=== PATIENT | female | born 1975 | race Caucasian/White ===

== ENCOUNTER → 2017-05-22 | Day surgery (SDC) | payer BC ==
[2017-05-12 11:52] VITALS: Ht 165.1 cm; Wt 51.8 kg
[~2017-05-22] VITALS: Ht 165.1 cm; Wt 51.8 kg
[~2017-05-22] MED LIST: ATROPINE SULFATE 0.1 MG/ML 5ML SYR IV PRN; BCPILLS PO; BUPIVACAINE/EPINEPHRINE 0.5% MPF 1:200,000 30 ML VIAL ONE; CEFAZOLIN 2000MG IV PUSH 10 ML IV SCH; DEXAMETHASONE SOD INJ 4 MG/ML VIAL ONE; EpHEDrine SULFATE INJ 50 MG/ML AMP IV PRN; FENTANYL CITRATE INJ 50 MCG/1 ML 2 ML VIAL IV PRN; FENTANYL CITRATE INJ 50 MCG/1 ML 2 ML VIAL ONE; HYDROCODONE/ACETAMOPHEN 5/325MG TAB PO PRN; HYDROmorphone INJ 1 MG/ML SYR IV PRN; IBUP-1050 PO; LACTATED RINGER'S 1000ML 1,000 ML IV SCH; LIDOCAINE HCL 2% 2 ML VIAL (20MG/ML) ONE; MIDAZOLAM HCL 1 MG/ML 2ML VIAL ONE; ONDANSETRON INJ 2 MG/ML 2 ML VIAL IV PRN; ONDANSETRON INJ 2 MG/ML 2 ML VIAL ONE; PROMETHAZINE HCL INJ 12.5 MG in SODIUM CHLORIDE 0.9% 50ML 50 ML IV PRN; PROPOFOL IV EMULSION 10 MG/ML 20 ML VIAL IV ONE
--- NOTE | 2017-05-22 06:41 | History & Physical Bridge - [place] ---
H&P Re-Evaluation Bridge Note: I have examined the patient, reviewed the History & Physical and in the interval since the performance of the History & Physical I have noted the following changes of clinical significance: No changes noted
--- NOTE | 2017-05-22 07:51 | Discharge Instructions-SurgCtr ---
Discharge Instructions Date of Service May 22, 2017. Visit Reason for Visit: Right Wrist Ganglion Cyst Discharge Discharge Diagnosis / Problem: Right wrist s/p ganglion cyst excision Discharge Goals Goal(s): Decrease discomfort, Improve function Medications Stopped Medications Name(s): Ibuprophen Activity Recommendations Activity Limitations: as noted below Lifting Limitations: gradually increase as tolerated Exercise/Sports Limitations: until after follow-up appointment Shower/Bathe: keep incision dry Anesthesia . Post Anesthesia Instructions: If you have had General Anesthesia or IV Sedation: * Do not drive today. * Resume driving when surgeon permits. * Do not make important decisions or sign legal documents today. * Call surgeon for: 1. Temperature elevations greater than 101 degrees F. 2. Uncontrollable pain. 3. Excessive bleeding. 4. Persistent nausea and vomiting. 5. Medication intolerance (nausea, vomiting or rash). * For nausea and vomiting use only clear liquids such as: tea, soda, bouillon until nausea subsides, then gradually increase diet as tolerated. * If you have any concerns or questions, call your surgeon's office. If physician is unavailable and it is an emergency, call 911 or go to the nearest emergency room. . Diet Recommendations Home Diet: resume previous diet Procedures Procedures Performed: Right Wrist Open Ganglion Cyst Excsion Pending Studies Studies pending at discharge: no Medical Emergencies . Who to Call and When: Medical Emergencies: If at any time you feel your situation is an emergency, please call 911 immediately. . Non-Emergent Contact Non-Emergency issues call your: Primary Care Provider, Surgeon Call Non-Emergent contact if: temperature is above 101, wound has increased drainage, wound has increased redness, wound has increased pain, you have any medication questions . . "Provider Documentation" section prepared by Jerel Peters PA-C. . [facility] Drug Monitoring Program Search Results: no issues identified
--- NOTE | 2017-05-22 07:51 | [facility] Post Operative Brief Note ---
Immediate Operative Summary Operative Date May 22, 2017. Pre-Operative Diagnosis Right Wrist Ganglion Cyst Post-Operative Diagnosis Same Procedure(s) Performed Right Wrist Open Ganglion Cyst Excsion Surgeon Dr. De Jesus Mammal Keeper Surgeon(s) None Estimated Blood Loss Minimal Findings Hemorrhagic cyst excised and sent to pathology Specimens A.) Right Wrist hemorrhagic Cyst Drains None Anesthesia General with local Complication(s) None Disposition Recovery Room / PACU
--- NOTE | 2017-05-22 08:15 | OPERATIVE REPORT ---
DATE OF OPERATION: 05/22/2017 PREOPERATIVE DIAGNOSIS: Right wrist dorsal ganglion cyst. POSTOPERATIVE DIAGNOSIS: Right wrist hemorrhagic cyst, likely hemangioma versus hemorrhagic ganglion cyst. OPERATION PERFORMED: Excision of hemorrhagic cyst from the right wrist. SURGEON: Phuc De Jesus MD. ANESTHESIA: General with local. ESTIMATED BLOOD LOSS: Minimal. SPECIMENS: Right wrist hemorrhagic cyst. IMPLANTS: None. COMPLICATIONS: None. INDICATIONS: Ms. Camacho is a 41-year-old female who developed a cyst on the dorsal aspect of her wrist in the setting of performing pushups and other activities as part of her workout regimen. She underwent an ultrasound which revealed a fluid-filled cyst with the EPL tendon in close proximity. Aspiration was attempted but failed. She continued to have pain in the wrist, which was affecting her functioning as well as her activities of daily living. I had a long discussion with her about the risks and benefits of surgery, alternatives to surgery and expected outcomes. After reviewing all these she elected to proceed with surgery. All questions were answered. Informed consent was signed. OPERATIVE FINDINGS: Hemorrhagic cyst was excised en bloc and sent to pathology for permanent section. DESCRIPTION OF PROCEDURE: The patient was identified in the preoperative long area where her surgical site was marked. She was brought back to main operating room. She was placed on the operating room table and general anesthesia was administered with an LMA. All bony prominences were padded. Perioperative antibiotics were administered. She was prepped and draped in the normal sterile fashion. Prior to incision, a multidisciplinary timeout was called. All in the room were in agreement. We began by exsanguinating the limb below the level of the cyst so as not to cause it to rupture using an Esmarch bandage. The tourniquet was inflated to 250 mmHg. A 2 cm transverse incision was made directly overlying the cyst. We dissected down through the subcutaneous tissues protecting any superficial veins. A branch of the superficial radial nerve was moved radially and protected throughout the case. The cyst was then immediately encountered and was hemorrhagic in nature. We dissected along the margins of the cyst which was intimately involved with an underlying vascular structure branching off the superficial radial artery. The bipolar cautery was used to coagulate the microscopic vessels entering the cyst adjacent to the vessel. The specimen was then removed en bloc and placed in a specimen cup and sent to pathology for permanent section. At this point, the wound was irrigated with copious amounts of normal saline. The incision was closed with buried 3-0 Monocryl as well as a subcuticular running Monocryl. Steri-Strips were applied followed by 2 x 2 and Tegaderm. A Coban was placed for compression. The patient was awoke from anesthesia and transferred to recovery room in stable condition. POSTOPERATIVE COURSE: The patient will be discharged home from the recovery room. She will be able to remove the dressing in 3 days. She will start immediate active range of motion. No lifting for 1 month after surgery. No DVT prophylaxis is indicated for this procedure. I attest to the content of the Intraoperative Record and any orders documented therein. Any exceptions are noted below. MTDD
[2017-05-22 08:37] VITALS: TEMP 37.3
[2017-05-22 09:07] VITALS: BP 100/68; PULSE 69; O2SAT 100
--- NOTE | 2017-05-22 09:09 | Anesthesia Progress Nt - [facility] ---
Anesthesia Post Op Note Date & Time May 22, 2017 at 09:08 Vital Signs Pain Intensity: 0 Vital Signs Past 12 Hours Date Time Temp Pulse Resp B/P (MAP) Pulse Ox O2 Delivery O2 Flow Rate FiO2 05/22/17 09:07 69 16 100/68 (79) 100 Room Air 05/22/17 08:37 37.3 70 16 109/70 (83) 98 Room Air 05/22/17 08:32 71 16 98 05/22/17 08:32 71 16 05/22/17 08:31 97/61 05/22/17 08:27 71 16 05/22/17 08:27 71 16 97 05/22/17 08:26 101/54 05/22/17 08:24 37.3 70 16 101/54 97 Room Air 05/22/17 08:23 71 17 05/22/17 08:23 70 17 97 05/22/17 08:21 103/61 05/22/17 08:18 73 16 98 05/22/17 08:18 69 16 05/22/17 08:16 105/58 05/22/17 08:13 76 20 98 05/22/17 08:13 76 20 05/22/17 08:11 106/59 05/22/17 08:08 73 18 100 05/22/17 08:08 72 18 05/22/17 08:06 100/65 05/22/17 08:03 79 17 100 05/22/17 08:03 78 17 05/22/17 08:00 104/56 05/22/17 07:58 78 18 05/22/17 07:58 79 18 100 05/22/17 07:56 99/56 05/22/17 07:54 99/65 05/22/17 07:53 36.1 77 12 99/65 100 Mask 6 05/22/17 07:53 82 05/22/17 06:58 0 05/22/17 06:53 69 05/22/17 06:53 69 0 97 05/22/17 06:52 103/70 05/22/17 06:50 103/70 05/22/17 06:48 71 0 96 05/22/17 06:48 71 05/22/17 06:47 71 106/67 95 05/22/17 06:47 71 05/22/17 06:41 36.8 71 20 106/67 (80) 96 Room Air Notes Mental Status: alert / awake / arousable, participated in evaluation Pt Amnestic to Procedure: Yes Nausea / Vomiting: adequately controlled Pain: adequately controlled Airway Patency, RR, SpO2: stable & adequate BP & HR: stable & adequate Hydration State: stable & adequate Anesthetic Complications: no major complications apparent
== END | disposition home or self-care (01) ==
LOC: X.SURG 06:26
PROVIDERS: ATTEND Orthopaedic Surgery
DX: M67.431 Ganglion, right wrist (principal); Z82.69 Family history of other diseases of the musculoskeletal system and connective tissue

== ENCOUNTER → 2017-06-06 | Outpatient (CLI) | payer BC ==
[~2017-06-06] MED LIST changes: -ATROPINE SULFATE 0.1 MG/ML 5ML SYR IV PRN; -BUPIVACAINE/EPINEPHRINE 0.5% MPF 1:200,000 30 ML VIAL ONE; -CEFAZOLIN 2000MG IV PUSH 10 ML IV SCH; -DEXAMETHASONE SOD INJ 4 MG/ML VIAL ONE; -EpHEDrine SULFATE INJ 50 MG/ML AMP IV PRN; -FENTANYL CITRATE INJ 50 MCG/1 ML 2 ML VIAL IV PRN; -FENTANYL CITRATE INJ 50 MCG/1 ML 2 ML VIAL ONE; -HYDROCODONE/ACETAMOPHEN 5/325MG TAB PO PRN; -HYDROmorphone INJ 1 MG/ML SYR IV PRN; -LACTATED RINGER'S 1000ML 1,000 ML IV SCH; -LIDOCAINE HCL 2% 2 ML VIAL (20MG/ML) ONE; -MIDAZOLAM HCL 1 MG/ML 2ML VIAL ONE; -ONDANSETRON INJ 2 MG/ML 2 ML VIAL IV PRN; -ONDANSETRON INJ 2 MG/ML 2 ML VIAL ONE; -PROMETHAZINE HCL INJ 12.5 MG in SODIUM CHLORIDE 0.9% 50ML 50 ML IV PRN; -PROPOFOL IV EMULSION 10 MG/ML 20 ML VIAL IV ONE
== END | disposition home or self-care (01) ==
LOC: C.PAPS 12:13
PROVIDERS: ATTEND Obstetrics & Gynecology
DX: Z01.419 Encounter for gynecological examination (general) (routine) without abnormal findings (principal)

== ENCOUNTER 2017-06-22 05:15 | Day surgery (SDC) | payer BC ==
--- NOTE | 2017-06-20 15:07 | HISTORY & PHYSICAL EXAMINATION ---
DATE OF ADMISSION: 06/22/2017 ATTENDING PHYSICIAN: Dr. Phuc De Jesus. CHIEF COMPLAINT: Right dorsal wrist wound infection. HISTORY OF PRESENT ILLNESS: This 41-year-old female presents to the clinic today for followup with Dr. De Jesus after undergoing an open right wrist ganglion cyst excision back on 05/22/2017. Since then the patient has had an infection and has been on antibiotics 2 separate times following surgery. During today's visit Dr. De Jesus recommended irrigation and debridement of the infected wound to be performed this at the [facility]. The patient wishes to proceed with this procedure and states she has stopped her aspirin, Tylenol, and Celebrex. She was advised to discontinue her Bactrim, which she last took yesterday evening. PAST SURGICAL HISTORY: [place] tooth extraction and right wrist ganglion cyst excision. PAST MEDICAL HISTORY: Anemia, alopecia, migraine headaches. FAMILY HISTORY: Maternal grandmother multiple sclerosis. Paternal grandmother Parkinson's disease. Paternal great grandmother cancer. ALLERGIES: The patient has no known drug allergies. CURRENT MEDICATIONS TAKEN: Bactrim-DS 800 mg/160 mg 1 tab twice daily, Celebrex 200 mg oral tablet 1 cap daily, Sprintec 0.25 mg/35 mcg oral tablet 1 tab daily, Tylenol 500 mg 2 tabs every 6 hours as needed for pain (the patient has discontinued all medications except for control due to upcoming surgery). SOCIAL HISTORY: The patient denies history of smoking or illicit drug use. She denies and states she consumes approximately 2 alcoholic beverages per day. PHYSICAL EXAMINATION: SKIN: The patient's skin is normal in appearance except for redness around the surgical incision site on the dorsal surface of the right hand. There are no open skin areas of discharge, no palpable fluctuance. EYES: Pupils are equal and react to light and accommodation. Extraocular movements are intact. THROAT: Posterior oropharynx is clear without signs of edema, erythema or exudate. CARDIOVASCULAR EXAMINATION: The patient has regular rate and rhythm with no murmurs or gallops appreciated. LUNGS: Auscultation of the lung coles reveals clear breath sounds throughout. No wheezing, rales or rhonchi. ABDOMEN: Nonobese, nondistended, nontender with normoactive bowel sounds. EXTREMITIES: Right hand/wrist. The patient has a palpable 0.5 x 1.5 cm erythematous area surrounding surgical incision site over the dorsal webspace between the first and second digits of the right hand. The area is mildly tender to palpation with some slight erythema. There is no ecchymosis, warmth, palpable deformity, open areas or active drainage. NEUROLOGICAL: Cranial nerves II-XII are intact. No motor or sensory deficit. PSYCHOLOGICAL AND GENERAL: The patient is alert and oriented x3 with proper grooming and hygiene. DIAGNOSIS: Right hand wound infection. PROCEDURE: Right hand irrigation and debridement. PLAN: The patient is scheduled to undergo this procedure with Dr. Phuc De Jesus at [facility] on , 06/22/2017. Risks and complications of the procedure such as infection, bleeding, pain, scarring, nerve and blood vessel damage, weakness, wound problems, stiffness, incomplete relief of symptoms, heart attack, stroke, were explained and patient by Dr. De Jesus during today's visit. The patient understood and agreed and we obtained written consent to perform the procedure. At this point there is no clinical indication for any preoperative medical clearance or testing. The patient will be scheduled for postop followup visit with myself in 2 weeks after surgical date. The patient is advised she will resume the use of aspirin, Tylenol and Celebrex after the procedure for DVT prophylaxis and pain control. The patient verbalized understanding along with information provided at todays visit, thanked us for the care she has received and states if she has questions or concerns that should arise prior to her surgery day she will contact the clinic.
[2017-06-21 10:09] VITALS: BMI 19.0
[~2017-06-22] VITALS: Ht 165.1 cm; Wt 51.8 kg
[~2017-06-22 05:15] MED LIST changes: -IBUP-1050 PO
[2017-06-22 05:38] VITALS: BP 105/73; PULSE 55; TEMP 36.8; O2SAT 97; Ht 165.1 cm; Wt 51.8 kg
[2017-06-22] MEDS ORDERED: CEFAZOLIN 2000MG IV PUSH 10 ML IV SCH (06:00)
[2017-06-22] MEDS ORDERED: LACTATED RINGER'S 1000ML 1,000 ML IV SCH ×2 (06:00)
[2017-06-22] MEDS ORDERED: PROPOFOL IV EMULSION 10 MG/ML 20 ML VIAL IV ONE (06:49)
[2017-06-22] MEDS ORDERED: LIDOCAINE HCL 2% 2 ML VIAL (20MG/ML) ONE (06:49)
[2017-06-22] MEDS ORDERED: FENTANYL CITRATE INJ 50 MCG/1 ML 2 ML VIAL ONE (06:50)
[2017-06-22] MEDS ORDERED: MIDAZOLAM HCL 1 MG/ML 2ML VIAL ONE (06:50)
[2017-06-22] MEDS ORDERED: BACITRACIN 50000 UNIT VIAL ONE (07:01)
[2017-06-22] MEDS ORDERED: LIDOCAINE HCL 2% LOCAL 50ML VIAL ONE (07:08)
--- NOTE | 2017-06-22 07:47 | [facility] Post Operative Brief Note ---
Immediate Operative Summary Operative Date Jun 22, 2017. Pre-Operative Diagnosis R hand suture abscess Post-Operative Diagnosis Same Procedure(s) Performed I&D R hand wound Surgeon Neal Silica Filter Operator Surgeon(s) LISSETH Lane Estimated Blood Loss 1 cc Findings No infected appearing material. Cultures obtained and sent. Monocryl suture had not dissolved and was removed from the wound. Fluids (cc crystalloids) 800cc Specimens Wound culture sent Drains None Anesthesia Local with sedation Complication(s) None Disposition Recovery Room / PACU
[2017-06-22] MEDS ORDERED: SODIUM CHLORIDE 0.9% 1000ML 1,000 ML IV SCH (07:50)
--- NOTE | 2017-06-22 07:50 | [facility] Operative Report ---
Operative Report Operative Date Jun 22, 2017. Pre-Operative Diagnosis R hand suture abscess Post-Operative Diagnosis Same Procedure(s) Performed I&D R hand wound Surgeon Neal Installment Account Checker Surgeon(s) LISSETH Lane Estimated Blood Loss 1 cc Findings Retained subcutaneous sutures Fluids 800cc Specimens Wound culture sent Drains None Anesthesia Local with sedation Complication(s) None Disposition Recovery Room / PACU I attest to the content of the Intraoperative Record and any orders documented therein. Any exceptions are noted below.
--- NOTE | 2017-06-22 07:56 | Discharge Instructions ---
Discharge Instructions Date of Service Jun 22, 2017. Admission Reason for Admission: Right Hand Wound Infection Discharge Discharge Diagnosis / Problem: Right hand Wound infection Discharge Goals Goal(s): Decrease discomfort, Improve function, Increase independence Activity Recommendations Activity Limitations: as noted below Lifting Limitations: no more than 10 pounds (for 2 wks) Exercise/Sports Limitations: until after follow-up appointment (None until after follow up) May Resume Sexual Activity: when tolerated Shower/Bathe: tomorrow, keep incision dry Driving or Machine Use: resume 1 day after discharge Weightbearing Status: Right weightbearing (as tolerated but not greater than 10 lbs for 2 wks with Rt arm) . Instructions / Follow-Up Instructions / Follow-Up Post-operative Instructions Dear Patient and Family/Friends, Before you are discharged from the hospital, it is important to know what to expect when you get home after surgery. To that end, we have created this sheet of discharge instructions which covers many commonly asked questions. Make sure you go through this sheet in its entirety with your nurse before you are discharged. Please note that we will go over the specifics of your surgery and recovery when you return for your first post-operative visit. Sincerely, Dr. De Jesus Pain Expect to be in a fair amount of pain after surgery. Remember, our goal is not to eliminate your pain, but to make it tolerable. It is a good idea to stay ahead of your pain by taking the medications you were prescribed once you get home. Typically, the pain starts improving 3-7 days after surgery. You should start weaning off the narcotic pain medication (oxycodone, hydrocodone, hydromorphone, morphine) as soon as your pain improves. Please call our office if your pain is not adequately controlled. Ice Ice your operative site at least 5 times a day for 15-30 minutes at a time. Make sure you have a thin cloth between the ice or cooling unit and your skin to prevent nixon bite. This is especially important if you received a nerve block. Continue icing your operative site for the first 5-7 days after surgery , then as needed. Diet/Nausea/Vomiting Start by drinking clear liquids and eating crackers. If you can tolerate this, then you may resume your normal diet. If you feel nauseated or vomit, take Zofran/ondansetron (if prescribed). Please call our office if you have intractable nausea or vomiting, or, if after hours, you may go to the Emergency Room for help. Constipation Constipation is a common side effect of narcotic pain medication. If you have not had a bowel movement within 2 days after surgery, we recommend purchasing an over the counter laxative such as Milk of Magnesia, Dulcolax, or Miralax from a local pharmacy, and taking it as instructed. Call our clinic if any questions. Slings and Braces If you were placed in a sling or brace, it must be worn at all times, including sleep. You may remove your sling or brace for physical therapy, home exercises , and showering. The length of time you will be in your brace and range of motion restrictions depends on what surgery you had; these details will be reviewed at your first post-operative appointment. Nerve block The anesthesia team sometimes places a nerve block to help with post-operative pain control. This results in significant numbness and inability to move the extremity. The nerve block usually wears off in 8-12 hours, but sometimes can last up to 24 hours. Please call our office if you are still unable to move your extremity after 24 hours, unless you received a pain pump to take home. Nerve blocks typically wear off quickly, so start taking pain medication as soon as you start feeling soreness near your surgical site. Weight bearing and Range of Motion. Do not bear any weight through your operative extremity immediately after surgery. If you had upper extremity surgery, do not lift anything with that arm. If you are in a knee brace, keep it locked in place until your follow-up. We will discuss your weight bearing, range of motion, and lifting restrictions in detail at your first post-operative appointment. Continuous Passive Motion (CPM) Machine If you were prescribed a CPM machine, it will start after your first post- operative appointment, at which time we will give you instructions on the range of motion settings and duration of treatment Physical therapy You will be given a prescription for physical therapy or occupational therapy at your first post-operative appointment. Typically, patients start therapy within 1 week of surgery Wound care and showering We will inspect your wound at your first post-operative visit, and may do a dressing change at that time. Most patients will be in a water-proof dressing that is removed 14 days after surgery. It is normal to see some dried blood on the dressing. Do not remove your dressing, paper strips or sutures yourself unless you are given permission. Showering is allowed the day after surgery. Do not scrub or remove any dressings. The wound should not be submerged underwater (i.e. in a bathtub or pool) until 4 weeks after surgery TIMOTHY stockings If you were given white stockings, these are to be worn at all times except to shower (on both legs) for the first 2 weeks after surgery. Driving You may not drive while taking narcotic pain medication or while in a cast, splint, sling or brace. You, the patient, need to make the final determination about when you are safe to drive, however, the earliest you may consider driving after surgery is below: Hand/Wrist/Elbow Surgery: 3 days Shoulder Surgery: 2 weeks Hip,/Knee/Ankle Surgery: 4 weeks Fracture repair: 6 weeks Return to Work Your return to work depends on what surgery was done and what type of work you do. Please bring any paperwork your employer needs completed to your first post -operative visit. Also, bring a description of your job duties, as this helps us to understand what risks you may face at work. Travel Avoid long distance travel (greater than 1 hour) in airplanes and cars for the first 6 weeks after surgery. If you must travel, you need to have a Doppler ultrasound done before you travel to rule out a blood clot in your legs. Follow-up You should have a follow-up appointment already scheduled 1-2 days after surgery. If not, please contact our office to make this appointment before you leave the hospital. When to call the office It is normal to have swelling and bruising in the limb that was operated on. This will improve with time. It is also normal to have fevers for the first 2 days after surgery. Reasons you should call your doctor include: Uncontrolled pain; Nausea, vomiting, or constipation that does not improve with medication; Fevers over 101.5, chills, sweats; Drainage or bleeding from the wound; Foul odor; Spreading areas of redness; Any other concerns Current Hospital Diet Patient's current hospital diet: Discharge Diet Recommended Diet: Regular Diet Procedures Procedures Performed: I&D R hand wound Pending Studies Studies pending at discharge: yes List of pending studies: Wound culture Medical Emergencies . Who to Call and When: Medical Emergencies: If at any time you feel your situation is an emergency, please call 911 immediately. . Non-Emergent Contact Non-Emergency issues call your: Primary Care Provider Call Non-Emergent contact if: you have a fever, temperature is above 101.5, your pain is not controlled, your pain is worsening, wound has increased drainage, you have any medication questions . "Provider Documentation" section prepared by George Stearns. . VTE Core Measure Inpt VTE Proph given/why not?: Other Anticoagulation (Aspirin EC 81 mg) [place] Drug Monitoring Program Search Results: patient reviewed within database, no issues identified, see additional documentation
[2017-06-22] MEDS ORDERED: OXYCODONE/ACETAMINOPHEN 5-325 TAB PO PRN (08:00)
[2017-06-22] MEDS ORDERED: ONDANSETRON INJ 2 MG/ML 2 ML VIAL IV PRN ×2 (08:00→08:15)
--- NOTE | 2017-06-22 08:11 | Anesthesiology Progress Note ---
Anesthesia Post Op Note Date & Time Jun 22, 2017 at 08:11 Vital Signs Pain Intensity: 0 Vital Signs Past 12 Hours Date Time Temp Pulse Resp B/P (MAP) Pulse Ox O2 Delivery O2 Flow Rate FiO2 06/22/17 08:00 36.5 63 18 107/73 97 Room Air 06/22/17 07:50 36.3 79 16 101/63 99 Oxymask 5 06/22/17 05:38 36.8 55 18 105/73 (84) 97 Room Air Notes Mental Status: alert / awake / arousable, participated in evaluation Pt Amnestic to Procedure: Yes Nausea / Vomiting: adequately controlled Pain: adequately controlled Airway Patency, RR, SpO2: stable & adequate BP & HR: stable & adequate Hydration State: stable & adequate Anesthetic Complications: no major complications apparent
[2017-06-22] MEDS ORDERED: EpHEDrine SULFATE INJ 50 MG/ML AMP IV PRN (08:15)
[2017-06-22] MEDS ORDERED: ATROPINE SULFATE 0.1 MG/ML 5ML SYR IV PRN (08:15)
[2017-06-22] MEDS ORDERED: FENTANYL CITRATE INJ 50 MCG/1 ML 2 ML VIAL IV PRN (08:15)
--- NOTE | 2017-06-22 08:34 | OPERATIVE REPORT ---
DATE OF OPERATION: 06/22/2017 PREOPERATIVE DIAGNOSIS: Right hand suture abscess. POSTOPERATIVE DIAGNOSIS: Same. OPERATION PERFORMED: Right hand wound I&D. SURGEON: Dr. Phuc De Jesus. FIELD CROP GROWER: Da Stearns. IV FLUIDS: 800 mL crystalloid. ESTIMATED BLOOD LOSS: 1 mL. URINE OUTPUT: Not recorded. SPECIMENS: Wound culture was sent for aerobic, anaerobic and Gram stain. DRAINS: None. COMPLICATIONS: None. INDICATIONS: Ms. Camacho is a 41-year-old female who underwent excision of a hemorrhagic cyst on the dorsal aspect of her right wrist on 05/22/2017. A couple of weeks after the surgery, she started having some irritation of the wound with some drainage which started on the ulnar aspect of the wound. She was started on oral Keflex and then switched to Bactrim as wound appearance did not improve on the Keflex. Despite being on over 5 days of Bactrim there was still no noticeable improvement in her wound. We talked about the possibilities of simply waiting this out versus doing an I&D to remove suture material and obtain deep cultures. After reviewing the risks and benefits of surgery, she elected to proceed. All questions were answered. Informed consent was signed. OPERATIVE FINDINGS: Monocryl suture material was still present in the wound. This was removed completely. There was no infectious appearing material in the wound. Wound cultures were obtained. The skin was closed with nylon sutures. DESCRIPTION OF THE OPERATION: The patient was identified in the preoperative holding area where surgical site was marked. She was brought back to main operating room. She was placed on the operating room table and IV sedation was administered. When she was comfortable the wound was anesthetized with 2% lidocaine total of 4 mL without epinephrine. The hand was then prepped and draped in normal sterile fashion. Prior to incision, a multidisciplinary timeout was called. All in the room were in agreement. I began by exsanguinating the wound with an Esmarch bandage. Tourniquet was inflated to 250 mmHg. The previous incision was opened up through its entirety for a total of approximately 2.5 cm. Cultures were immediately obtained from the wound. We then administered our IV antibiotics. The wound was then explored. Monocryl suture in a subcuticular as well as buried fashion was removed from the wound. There is no necrotic appearing tissue to excise. Hemostasis was achieved. The wound was irrigated with 1 liter of normal saline with bacitracin. The wound was then closed with 4-0 nylon sutures in a horizontal and simple suture fashion. A sterile dressing of 2 x 2 and Tegaderm as well as a Coban was placed for compression. The patient's sedation was lifted and she was transferred to the recovery room in stable condition. POSTOPERATIVE COURSE: The patient will resume her Bactrim empirically to finish out the previously prescribed course. We will follow her wound cultures and adjust any antibiotic treatment as necessary, however my suspicion is that her cultures will come back negative. She will have a 10 pound lifting restriction for the next 2 weeks until her wound heals. She can start immediate active range of motion of the wrist. I attest to the content of the Intraoperative Record and any orders documented therein. Any exception s are noted below.
[2017-06-22 08:45] VITALS: BP 98/50; PULSE 67; TEMP 36.8; O2SAT 98
== END 2017-06-22 08:45 | disposition home or self-care (01) ==
LOC: C.ACU 05:15
PROVIDERS: ATTEND Orthopaedic Surgery
DX: T81.4XXA Infection following a procedure, initial encounter (principal); L02.511 Cutaneous abscess of right hand; X58.XXXA Exposure to other specified factors, initial encounter